=== PATIENT | female | born 1945 ===

== ENCOUNTER 2017-10-24 07:45 | Outpatient (CLI) | payer OTHER | END 2017-10-24 07:53 | disposition home or self-care (01) | LOC: LAB 07:45 | DX: D64.89 Other specified anemias (principal); E03.8 Other specified hypothyroidism; E78.2 Mixed hyperlipidemia; E11.69 Type 2 diabetes mellitus with other specified complication; N08 Glomerular disorders in diseases classified elsewhere; N39.0 Urinary tract infection, site not specified; R19.5 Other fecal abnormalities; E08.8 Diabetes mellitus due to underlying condition with unspecified complications ==

== ENCOUNTER 2018-12-17 07:28 | Outpatient (CLI) | payer OTHER | END 2018-12-17 07:35 | disposition home or self-care (01) | LOC: LAB 07:28 | DX: D64.89 Other specified anemias (principal); E03.8 Other specified hypothyroidism; E78.2 Mixed hyperlipidemia; E11.69 Type 2 diabetes mellitus with other specified complication; N39.0 Urinary tract infection, site not specified; N05.0 Unspecified nephritic syndrome with minor glomerular abnormality; R19.5 Other fecal abnormalities ==

== ENCOUNTER 2021-01-18 11:04 | Outpatient (CLI) | payer OTHER | END 2021-01-18 11:12 | disposition home or self-care (01) | LOC: MAMO-SONO 11:04 | PROVIDERS: ATTEND General Practice | DX: R92.8 Other abnormal and inconclusive findings on diagnostic imaging of breast (principal); Z12.31 Encounter for screening mammogram for malignant neoplasm of breast; Z87.898 Personal history of other specified conditions; N64.59 Other signs and symptoms in breast ==